=== PATIENT | female | born 1955 | race Caucasian/White ===

== ENCOUNTER 2023-01-15 22:00 | Emergency (ER) | payer BC ==
[2023-01-15] MEDS ORDERED: Aspirin 81 MG Tab.Chew PO ONE (22:40)
[2023-01-15 22:52] LABS: BASOPHILS ABSOLUTE AUTO 0.09 K/uL (0.00-0.10); EOSINOPHILS ABSOLUTE AUTO 0.09 K/uL (0.00-0.40); HEMATOCRIT 41.2 % (34.3-46.0); HEMOGLOBIN 14.2 g/dL (11.2-15.5); IMMATURE GRAN ABSOLUTE AUTO 0.03 K/uL (0.00-0.23); IMMATURE GRAN PERCENT AUTO 0.3 % (0.0-0.7); LYMPHOCYTES ABSOLUTE AUTO 2.16 K/uL (0.8-3.3); LYMPHOCYTES PERCENT AUTO 22.8 % (11.4-47.7); MEAN CORPUSCULAR HEMOGLOBIN 31.1 pg (31.6-35.5); MEAN CORPUSCULAR HGB CONC 34.5 g/dL (31.6-35.5); MEAN CORPUSCULAR VOLUME 90.4 fL (81.4-99.0); MONOCYTES ABSOLUTE AUTO 0.75 K/uL (0.20-0.90); MONOCYTES PERCENT AUTO 7.9 % (3.3-12.6); NEUTROPHILS ABSOLUTE AUTO 6.35 K/uL (1.0-7.6); PLATELET COUNT,PLT 210 K/uL (130-375); RED BLOOD CELL COUNT 4.56 M/uL (3.77-5.24); WHITE BLOOD CELL COUNT,WBC 9.5 K/uL (3.2-11.0)
[2023-01-15 23:07] LABS: ANION GAP 16.9 mmol/L (5.0-14.0); CREATININE 0.9 mg/dL (0.6-1.0); EST CRCL DRUG DOSING (CG) 57.57 mL/min; POTASSIUM,K 3.9 mmol/L (3.6-5.2)
[2023-01-15] MEDS ORDERED: Sodium Chloride 0.9% 10 ML Syringe FLUSH ONE (23:25)
[2023-01-15] MEDS ORDERED: Sodium Chloride 0.9% 100 ML IV SCH (23:30)
[2023-01-15] MEDS ORDERED: Iopamidol 755 Mg/ML 100 ML Bottle IV SCH (23:30)
== END 2023-01-16 01:47 | disposition home or self-care (01) ==
LOC: MERGE 22:00 → EDBD 22:00 → JP.ED 22:00
DX: G45.9 Transient cerebral ischemic attack, unspecified (principal)
CPT/HCPCS: 36415; 70450; 70496; 70498; 80048; 85025; 99284; 99285; A9270; J3490; Q9967